=== PATIENT | female | born 1965 | race Caucasian/White ===

== ENCOUNTER 2017-12-30 14:24 | Emergency (ER) | payer OTHER ==
[2017-12-30] MEDS ORDERED: LORazepam 2 MG/ML SDV IVPUSH ONE (14:38)
[2017-12-30] MEDS ORDERED: Sodium Chloride 0.9% 10 ML Syringe FLUSH PRN (14:38)
[2017-12-30] MEDS ORDERED: LORazepam 2 MG/ML SDV ONE (14:41)
[2017-12-30 15:13] VITALS: BP 128/83
--- NOTE | 2017-12-30 16:18 | EDM.PDOC ---
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 Took BP 190 got scared. rapid HR couldn't breathe. SSCP described as pressure and burning. No hx HD or panic attacks. anxious. Chest Pain Score (Numeric/FACES): 5 - Related Data Allergies Allergy/AdvReac Type Severity Reaction Status Date / Time levofloxacin [From Levaquin] Allergy Severe Respiratory Verified 12/04/15 07:04 Distress phenobarbital Allergy Severe Cannot Verified 12/04/15 07:04 Remember sulfamethoxazole Allergy Severe Anaphylactic Verified 12/04/15 07:04 [From Bactrim] Shock trimethoprim [From Bactrim] Allergy Severe Anaphylactic Verified 12/04/15 07:04 Shock morphine Allergy Itching Verified 12/04/15 07:04 Home Meds: Home Meds Sertraline HCl [Zoloft] 100 mg PO DAILY PRN 11/30/15 [History] Cyclobenzaprine [Flexeril] 10 mg PO Q6H PRN #30 tablet 12/06/15 [Rx] Hydroxychloroquine Sulfate [Plaquenil] 200 mg PO BID 12/30/17 [History] Loteprednol [Lotemax 0.5% Ophth Soln] 1 drop EYEBOTH BID 12/30/17 [History] Omeprazole Magnesium [Prilosec Otc] 20 mg PO DAILY 12/30/17 [History] Potassium Citrate 20 meq PO BID 12/30/17 [History] amLODIPine Besylate [Norvasc] 5 mg PO DAILY 12/30/17 [History] azaTHIOprine [Imuran] 50 mg PO DAILY 12/30/17 [History] cycloSPORINE [Restasis] 1 drop EYEBOTH BID 12/30/17 [History] predniSONE [Prednisone] 10 mg PO ASDIRECTED 12/30/17 [History] traZODone HCl [Trazodone HCl] 50 - 150 mg PO BEDTIME 12/30/17 [History] Past Medical History HEENT History: Reports: Sinusitis Gastrointestinal History: Reports: Chronic Constipation, Chronic Diarrhea, GERD Genitourinary History: Reports: Renal Disease, Urinary Incontinence Other Genitourinary History: stage 3 kidney disease 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 Uterine Bleeding, Musculoskeletal History: Reports: Back Pain, Chronic, Other (See Below) Other Musculoskeletal History: hip pain Psychiatric History: Reports: Anxiety, Depression Hematologic History: Reports: Blood Transfusion(s) - Infectious Disease History Infectious Disease History: Reports: Chicken Pox, Measles, Mumps - Past Surgical History HEENT Surgical History: Reports: Adenoidectomy, Oral Surgery, Tonsillectomy, Other (See Below) Female Surgical History: Reports: Hysterectomy, Other (See Below) Social & Family History - Tobacco Use Smoking Status *Q: Never Smoker - Caffeine Use Caffeine Use: Reports: Coffee - Recreational Drug Use Recreational Drug Use: No ED ROS GENERAL - Review of Systems Review Of Systems: ROS reveals no pertinent complaints other than HPI. ED EXAM, GENERAL - Physical Exam Exam: See Below Exam Limited By: No Limitations General Appearance: Alert, WD/WN, Anxious, Moderate Distress Respiratory/Chest: Lungs Clear, Other (tachypnea) Cardiovascular: Regular Rate, Rhythm, No Edema, Tachycardia Peripheral Pulses: 1+: Radial (L), Radial (R) GI/Abdominal: Non-Tender Extremities: Normal Inspection Neurological: Alert, Oriented Psychiatric: Anxious Skin Exam: Warm, Dry Course - Vital Signs Last Recorded V/S: Last Vital Signs Temp 37.3 C 12/30/17 14:46 Pulse 114 H 12/30/17 15:13 Resp 16 12/30/17 15:13 BP 128/83 12/30/17 15:13 Pulse Ox 92 L 12/30/17 15:13 - Orders/Labs/Meds Orders: Active Orders 24 hr Category Date Time Status EKG Documentation Completion [RC] ASDIRECTED Care 12/30/17 14:38 Active EKG Documentation Completion [RC] ASDIRECTED Care 12/30/17 16:07 Active Chest 1V Frontal [CR] Urgent Exams 12/30/17 14:37 Taken Sodium Chloride 0.9% [Saline Flush] Med 12/30/17 14:38 Active 10 ml FLUSH ASDIRECTED PRN Saline Lock Insert [OM.PC] Urgent Oth 12/30/17 14:37 Ordered EKG 12 Lead [EK] Urgent Ther 12/30/17 14:37 Ordered EKG 12 Lead [EK] Urgent Ther 12/30/17 16:07 Ordered Medication Orders Sodium Chloride (Saline Flush) 10 ml FLUSH ASDIRECTED PRN PRN Reason: Keep Vein Open Last Admin: 12/30/17 14:42 Dose: 10 ml Labs: Laboratory Tests 12/30/17 12/30/17 12/30/17 Range/Units 14:30 14:30 14:30 WBC 6.6 (4.5-11.0) K/uL RBC 4.50 (3.30-5.50) M/uL Hgb 12.7 (12.0-15.0) g/dL Hct 39.4 (36.0-48.0) % MCV 88 (80-98) fL MCH 28 (27-31) pg MCHC 32 (32-36) % Plt Count 161 (150-400) K/uL Neut % (Auto) 79 H (36-66) % Lymph % (Auto) 12 L (24-44) % Peach % (Auto) 9 H (2-6) % Eos % (Auto) 0 L (2-4) % Baso % (Auto) 0 (0-1) % D-Dimer, Quantitative < 100 (0.0-400.0) ng/mL Sodium (140-148) mmol/L Potassium (3.6-5.2) mmol/L Chloride (100-108) mmol/L Carbon Dioxide (21-32) mmol/L Anion Gap (5.0-14.0) mmol/L BUN (7-18) mg/dL Creatinine (0.6-1.0) mg/dL Est Cr Clr Drug Dosing mL/min Estimated GFR (MDRD) (>60) Glucose (74-106) mg/dL Calcium (8.5-10.1) mg/dL Total Bilirubin (0.2-1.0) mg/dL AST (15-37) U/L ALT (12-78) U/L Alkaline Phosphatase (46-116) U/L Troponin I < 0.017 (0.000-0.056) ng/mL Total Protein (6.4-8.2) g/dL Albumin (3.4-5.0) g/dL Globulin (2.3-3.5) g/dL Albumin/Globulin Ratio (1.2-2.2) 12/30/17 Range/Units 14:30 WBC (4.5-11.0) K/uL RBC (3.30-5.50) M/uL Hgb (12.0-15.0) g/dL Hct (36.0-48.0) % MCV (80-98) fL MCH (27-31) pg MCHC (32-36) % Plt Count (150-400) K/uL Neut % (Auto) (36-66) % Lymph % (Auto) (24-44) % Peach % (Auto) (2-6) % Eos % (Auto) (2-4) % Baso % (Auto) (0-1) % D-Dimer, Quantitative (0.0-400.0) ng/mL Sodium 138 L (140-148) mmol/L Potassium 4.8 (3.6-5.2) mmol/L Chloride 102 (100-108) mmol/L Carbon Dioxide 25 (21-32) mmol/L Anion Gap 15.8 H (5.0-14.0) mmol/L BUN 27 H D (7-18) mg/dL Creatinine 1.4 H (0.6-1.0) mg/dL Est Cr Clr Drug Dosing 45.00 mL/min Estimated GFR (MDRD) 40 L (>60) Glucose 123 H (74-106) mg/dL Calcium 9.2 (8.5-10.1) mg/dL Total Bilirubin 0.4 D (0.2-1.0) mg/dL AST 13 L (15-37) U/L ALT 29 (12-78) U/L Alkaline Phosphatase 54 (46-116) U/L Troponin I (0.000-0.056) ng/mL Total Protein 6.6 (6.4-8.2) g/dL Albumin 3.3 L (3.4-5.0) g/dL Globulin 3.3 (2.3-3.5) g/dL Albumin/Globulin Ratio 1.0 L (1.2-2.2) Meds: Medications Generic Name Dose Route Start Last Admin Trade Name Freq PRN Reason Stop Dose Admin Sodium Chloride 10 ml 12/30/17 14:38 12/30/17 14:42 Saline Flush FLUSH 10 ml ASDIRECTED PRN Administration Keep Vein Open Discontinued Medications Generic Name Dose Route Start Last Admin Trade Name Kaya PRN Reason Stop Dose Admin Lorazepam 2 mg 12/30/17 14:38 12/30/17 14:42 Ativan IVPUSH 12/30/17 14:39 2 mg ONETIME ONE Administration Lorazepam Confirm 12/30/17 14:41 12/30/17 14:45 Ativan Administered 12/30/17 14:42 Not Given Dose 2 mg .ROUTE .STK-MED ONE - Re-Assessments/Exams Free Text/Narrative Re-Assessment/Exam: 12/30/17 16:15 2 ekg's show sinus tacky. # at 109 bpm after 2 mg ativan iv. No ischemic changes All cp fone now. Departure - Departure Time of Disposition: 16:16 Disposition: Home, Self-Care 01 Condition: Fair Clinical Impression: Chest pain, Panic attack Referrals: PCP,None [Primary Care Provider] - Additional Instructions: The medication you received, Lorazepam or Ativan , will continue to cause sedation for the rest of the day so you should avoid driving or operating machinery I you continue to have these episodes then see your doctor about treatment to prevent these episodes. - My Orders Last 24 Hours: My Active Orders 12/30/17 14:37 Chest 1V Frontal [CR] Urgent Saline Lock Insert [OM.PC] Urgent EKG 12 Lead [EK] Urgent 12/30/17 14:38 EKG Documentation Completion [RC] ASDIRECTED Sodium Chloride 0.9% [Saline Flush] 10 ml FLUSH ASDIRECTED PRN 12/30/17 16:07 EKG Documentation Completion [RC] ASDIRECTED EKG 12 Lead [EK] Urgent - Assessment/Plan Last 24 Hours: My Active Orders 12/30/17 14:37 Chest 1V Frontal [CR] Urgent Saline Lock Insert [OM.PC] Urgent EKG 12 Lead [EK] Urgent 12/30/17 14:38 EKG Documentation Completion [RC] ASDIRECTED Sodium Chloride 0.9% [Saline Flush] 10 ml FLUSH ASDIRECTED PRN 12/30/17 16:07 EKG Documentation Completion [RC] ASDIRECTED EKG 12 Lead [EK] Urgent
--- NOTE | 2017-12-31 10:55 | CR ---
Chest 1V Frontal INDICATION: pain COMPARISON: 12/30/2017 FINDINGS: AP portable chest. Heart size normal. Lungs are clear. No pleural effusion.
== END 2017-12-30 16:37 | disposition home or self-care (01) ==
LOC: JP.ED 14:24
DX: F41.0 Panic disorder [episodic paroxysmal anxiety] (principal); R07.9 Chest pain, unspecified; K21.9 Gastro-esophageal reflux disease without esophagitis; Z88.1 Allergy status to other antibiotic agents; Z88.2 Allergy status to sulfonamides; Z88.5 Allergy status to narcotic agent; Z79.899 Other long term (current) drug therapy
CPT/HCPCS: 36415; 71045; 80053; 84484; 85025; 85379; 93005; 96374; 99285; J2060; J7050

== ENCOUNTER 2018-09-24 06:53 | Day surgery (SDC) | payer OTHER ==
[2018-09-24] MEDS ORDERED: Dextrose 5%-Lactated Ringers 1,000 ML IV SCH (07:15)
[2018-09-24] MEDS ORDERED: fentaNYL 100 MCG/2 ML SDV ONE (07:32)
[2018-09-24] MEDS ORDERED: Midazolam 1 MG/ML 2 ML SDV ONE (07:32)
[2018-09-24] MEDS ORDERED: Propofol 200 MG/20 ML SDV ONE ×2 (07:32→09:26)
[2018-09-24 11:00] VITALS: BP 123/88
--- NOTE | 2018-09-30 13:29 | OR ---
DATE OF PROCEDURE: 09/24/2018 PREOPERATIVE DIAGNOSIS: Indications for screening colonoscopy. POSTOPERATIVE DIAGNOSIS: Normal screening colonoscopy. OPERATIVE PROCEDURE: Flexible colonoscopy. ANESTHESIA: IV sedation. INDICATIONS FOR PROCEDURE: This is a 53-year-old female presenting for screening colonoscopy. Potential risks including bleeding and infection were reviewed, and the patient wishes to proceed. DETAILS OF PROCEDURE: The patient was taken to the operating room and placed in a left lateral decubitus position. IV sedation was administered, after which the initial digital rectal exam was performed and it was unremarkable. Colonoscope was then passed into the rectum with retroflexion revealing uncomplicated hemorrhoidal columns. The scope was eventually passed to the level of the cecum. The prep was quite good with only small amount of liquid stool being present. To that level, no abnormalities were noted. Specifically, there was no diverticula, no areas of colitis, and no polyps or other signs of neoplasia. The above findings were then reconfirmed upon removal of the scope and the procedure concluded. The patient was taken to the recovery room in satisfactory condition. With the absence of any personal and family history of colonic neoplasia, the patient should have a repeat colonoscopy in 10 years. Charles Garcia MD /[id number]
== END 2018-09-24 11:00 | disposition home or self-care (01) ==
LOC: JP.SDS 06:53
PROVIDERS: ATTEND Surgery
DX: Z12.11 Encounter for screening for malignant neoplasm of colon (principal); K64.9 Unspecified hemorrhoids; I12.9 Hypertensive chronic kidney disease with stage 1 through stage 4 chronic kidney disease, or unspecified chronic kidney disease; N18.3 Chronic kidney disease, stage 3 (moderate)
CPT/HCPCS: 45378; J2250; J2704; J3010; J7042

== ENCOUNTER 2019-07-28 16:38 | Emergency (ER) | payer OTHER ==
[2019-07-28 16:52] VITALS: BP 165/106; PULSE 116
== END 2019-07-28 17:49 | disposition home or self-care (01) ==
LOC: JP.ED 16:38
DX: Z53.21 Procedure and treatment not carried out due to patient leaving prior to being seen by health care provider (principal)

== ENCOUNTER 2019-09-15 10:33 | Emergency (ER) | payer OTHER ==
[2019-09-15 10:53] VITALS: BP 141/94; PULSE 117
[2019-09-15] MEDS ORDERED: Ketorolac 30 MG/ML SDV IM ONE (11:11)
[2019-09-15] MEDS ORDERED: Metoclopramide 10 MG Tab PO ONE (11:12)
--- NOTE | 2019-09-15 11:17 | EDM.PDOC ---
ED HPI GENERAL MEDICAL PROBLEM - General Chief Complaint: Flank Pain Stated Complaint: LOWER BACK PAIN Time Seen by Provider: 09/15/19 11:04 Source of Information: Reports: Patient, Old Records, RN Notes Reviewed History Limitations: Reports: No Limitations - History of Present Illness INITIAL COMMENTS - FREE TEXT/NARRATIVE: 54-year-old female presents emergency department a complaint of flank pain she states it really started early this morning initially wax and wane but now it is constant sharp and stabbing temperature was 100.8 at home she is afebrile here recently had a urinary tract infection treated with Invanz for 7 days. She does feel nauseated remote history of nephrolithiasis several years ago. No urinary symptoms follow-up UA per her report was negative Left Lower Back Pain Score (Numeric/FACES): 10 - Related Data Allergies Allergy/AdvReac Type Severity Reaction Status Date / Time levofloxacin [From Levaquin] Allergy Severe Respiratory Verified 09/15/19 10:58 Distress phenobarbital Allergy Severe Cannot Verified 09/15/19 10:58 Remember sulfamethoxazole Allergy Severe Anaphylactic Verified 09/15/19 10:58 [From Bactrim] Shock trimethoprim [From Bactrim] Allergy Severe Anaphylactic Verified 09/15/19 10:58 Shock azathioprine [From Imuran] Allergy Rash Verified 09/15/19 10:58 morphine Allergy Itching Verified 09/15/19 10:58 Home Meds: Home Meds Cyclobenzaprine [Flexeril] 10 mg PO Q6H PRN #30 tablet 12/06/15 [Rx] Hydroxychloroquine Sulfate [Plaquenil] 200 mg PO BID 12/30/17 [History] amLODIPine Besylate [Norvasc] 10 mg PO DAILY 12/30/17 [History] Acetaminophen with Codeine [Tylenol with Codeine #3 Tablet] 1 tab PO Q8H PRN [History] Fluticasone Propionate [Flonase Allergy Relief] 2 spray NS DAILY 09/22/18 [ History] buPROPion HCl [Wellbutrin Xl] 300 mg PO DAILY 09/22/18 [History] diphenhydrAMINE HCl [Benadryl] 25 mg PO Q6H PRN 09/22/18 [History] Acetaminophen [Pain Reliever] 1,500 mg PO ASDIRECTED PRN 12/17/19 [History] mycophenolate mofetiL [Cellcept] 1,500 mg PO BID 07/28/19 [History] Ketorolac [Toradol] 10 mg PO TID PRN #20 tab 09/15/19 [Rx] Past Medical History HEENT History: Reports: Hard of Hearing, Impaired Vision, Sinusitis, Other (See Below) Other HEENT History: wears glasses Gastrointestinal History: Reports: Chronic Constipation, Chronic Diarrhea, GERD , Hemorrhoids Genitourinary History: Reports: Renal Disease, Urinary Incontinence, UTI, Recurrent Other Genitourinary History: stage 3 kidney disease 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 Uterine Bleeding, Musculoskeletal History: Reports: Back Pain, Chronic, Other (See Below) Other Musculoskeletal History: hip pain Neurological History: Reports: Other (See Below) Other Neuro History: febrile seizure as child Psychiatric History: Reports: Anxiety, Depression Hematologic History: Reports: Anemia, Blood Transfusion(s) Immunologic History: Reports: Other (See Below) Dermatologic History: Reports: Other (See Below) Other Dermatologic History: bacterial rash to buttock - Infectious Disease History Infectious Disease History: Reports: Chicken Pox, Measles, Mumps, Shingles - Past Surgical History Head Surgeries/Procedures: Reports: None HEENT Surgical History: Reports: Adenoidectomy, Naso-Sinus Surgery, Oral Surgery , Tonsillectomy, Other (See Below) GI Surgical History: Reports: EGD, Lynn Fundoplication Female Surgical History: Reports: Hysterectomy, Other (See Below) Other Female Surgeries/Procedures: prolapse bladder Neurological Surgical History: Reports: None Musculoskeletal Surgical History: Reports: Hip Replacement Dermatological Surgical History: Reports: None Social & Family History - Tobacco Use Smoking Status *Q: Never Smoker Second Hand Smoke Exposure: No - Caffeine Use Caffeine Use: Reports: Coffee, Tea - Recreational Drug Use Recreational Drug Use: No ED ROS GENERAL - Review of Systems Review Of Systems: See Below Constitutional: Reports: Fever HEENT: Reports: No Symptoms Respiratory: Reports: No Symptoms Cardiovascular: Reports: No Symptoms GI/Abdominal: Reports: Nausea. Denies: Abdominal Pain : Reports: Flank Pain Musculoskeletal: Reports: No Symptoms Skin: Reports: No Symptoms ED EXAM, RENAL/ - Physical Exam Exam: See Below Exam Limited By: No Limitations General Appearance: Alert, Mild Distress Respiratory/Chest: No Respiratory Distress, Lungs Clear, Normal Breath Sounds, No Accessory Muscle Use, Chest Non-Tender Cardiovascular: Regular Rate, Rhythm, No Murmur GI/Abdominal: Soft, Tender Back Exam: Normal Inspection, Full Range of Motion, CVA Tenderness (R). No: CVA Tenderness (L) Course - Vital Signs Last Recorded V/S: Last Vital Signs Temp 98.1 F 09/15/19 10:54 Pulse 117 H 09/15/19 10:54 Resp 18 09/15/19 10:54 BP 141/94 H 09/15/19 10:54 Pulse Ox 100 09/15/19 10:54 - Orders/Labs/Meds Orders: Active Orders 24 hr Category Date Time Status CULTURE URINE [RM] Urgent Lab 09/15/19 12:10 Received Labs: Laboratory Tests 09/15/19 09/15/19 09/15/19 Range/Units 11:05 11:22 11:22 WBC 5.4 (4.5-11.0) K/uL RBC 4.54 (3.30-5.50) M/uL Hgb 12.3 (12.0-15.0) g/dL Hct 38.9 (36.0-48.0) % MCV 86 (80-98) fL MCH 27 (27-31) pg MCHC 32 (32-36) % Plt Count 276 (150-400) K/uL Neut % (Auto) 75 H (36-66) % Lymph % (Auto) 13 L (24-44) % Barren % (Auto) 11 H (2-6) % Eos % (Auto) 0 L (2-4) % Baso % (Auto) 1 (0-1) % Sodium 136 L (140-148) mmol/L Potassium 4.3 (3.6-5.2) mmol/L Chloride 106 (100-108) mmol/L Carbon Dioxide 19 L (21-32) mmol/L Anion Gap 15.3 H (5.0-14.0) mmol/L BUN 16 (7-18) mg/dL Creatinine 1.3 H (0.6-1.0) mg/dL Est Cr Clr Drug Dosing 47.39 mL/min Estimated GFR (MDRD) 43 L (>60) Glucose 95 (74-106) mg/dL Calcium 8.4 L (8.5-10.1) mg/dL Urine Color Yellow (YELLOW) Urine Appearance Slightly cloudy A (CLEAR) Urine pH 6.5 (5.0-8.0) Ur Specific Carter 1.015 (1.008-1.030) Urine Protein Negative (NEGATIVE) mg/dL Urine Glucose (UA) Negative (NEGATIVE) mg/dL Urine Ketones Negative (NEGATIVE) mg/dL Urine Occult Blood Negative (NEGATIVE) Urine Nitrite Positive H (NEGATIVE) Urine Bilirubin Negative (NEGATIVE) Urine Urobilinogen 0.2 (0.2-1.0) EU/dL Ur Leukocyte Esterase Small H (NEGATIVE) Urine RBC 0-5 (0-5) Urine WBC 20-30 H (0-5) Ur Epithelial Cells Few Amorphous Sediment Not seen Urine Bacteria Many Urine Mucus Not seen Meds: Medications Discontinued Medications Generic Name Dose Route Start Last Admin Trade Name Freq PRN Reason Stop Dose Admin Ketorolac Tromethamine 30 mg 09/15/19 11:11 09/15/19 11:31 Toradol IM 09/15/19 11:12 30 mg ONETIME ONE Administration Metoclopramide HCl 10 mg 09/15/19 11:12 09/15/19 11:31 Reglan PO 09/15/19 11:13 10 mg ONETIME ONE Administration Departure - Departure Time of Disposition: 12:27 Disposition: Home, Self-Care 01 Condition: Fair Clinical Impression: Functional constipation - Discharge Information Instructions: Constipation, Adult Referrals: Magdalena Singer CNM [Primary Care Provider] - Forms: ED Department Discharge Additional Instructions: Try the MiraLAX follow the colonoscopy prep. Your urine culture will take 3 to 4 days to complete if it does grow a bacteria consistent with a urinary tract infection we will prescribe the appropriate antibiotic based upon your allergies and sensitivities of the culture. Medications have been faxed to [facility], please followup with your primary care provider in 3-5 days if not better, please call return to the emergency department with worsening of symptoms. Sepsis Event Note - Evaluation Sepsis Screening Result: No Definite Risk - Focused Exam Vital Signs: Vital Signs Temp Pulse Resp BP Pulse Ox 09/15/19 10:54 98.1 F 117 H 18 141/94 H 100 09/15/19 10:52 98.1 F 117 H 18 141/94 H 100 Date Exam was Performed: 09/15/19 Time Exam was Performed: 12:23 - My Orders Last 24 Hours: My Active Orders 09/15/19 12:10 CULTURE URINE [RM] Urgent - Assessment/Plan Last 24 Hours: My Active Orders 09/15/19 12:10 CULTURE URINE [RM] Urgent Plan: Assessment Acuity = acute Site and laterality = functional constipation Etiology = slow transit time Manifestations = none Location of injury = Home Lab values = CBC unremarkable BMP reveals a creatinine 1.3 consistent with chronic renal failure stage G3a urinalysis positive for nitrates and 20-30 WBCs consistent with pyuria cultures pending Plan After reviewing her record urinalysis on 29 August also positive for nitrates and WBCs urine culture revealed mixed alysia and she was treated with 1 week of Invanz. She did report a fever at home however no fever was reported in the emergency department elected to hold off on treatment until urine culture was available. The functional constipation is probably contributing to the abdominal pain she did get significant relief with the Toradol injection. Agreed to write a prescription for Toradol 10 mg p.o. 3 times daily as needed total #20 and counseled her on the use of that medication with her stage III kidney disease. [place] this was a better choice than a narcotic at this point time follow-up primary care 3 to 5 days if not better This note was dictated using [employer] voice recognition software please call with any questions on syntax or grammar.
--- NOTE | 2019-09-15 11:54 | CT ---
Abdomen Pelvis wo Cont CLINICAL HISTORY: Flank pain COMPARISON: 2012. TECHNIQUE: Axial tomographic images are obtained from the dome of the diaphragm to the pubic symphysis without IV contrast enhancement. No oral contrast was used. A scribe dose FINDINGS: The lung bases are clear. The liver shows no mass or biliary dilatation. The gallbladder has a normal appearance. Patient has had previous gastric surgery. This may have been a Lynn procedure. The spleen has a normal configuration. There is dilatation of the duodenum and jejunal bowel loops. Ileal contour and caliber is normal throughout. The definite transition point is not identified. The appendix has a normal contour. There is moderate to the fecal retention in the right and transverse colon The pancreas shows no mass or inflammatory change. The adrenal glands appear normal bilaterally. The kidneys show innumerable medullary type calcifications diffusely and bilaterally. There is no hydronephrosis. A 1.8 cm low-attenuation focus in the midpole of the right kidney and is similar to 0.1 cm low-attenuation focus in the upper pole of the left kidney. These likely represent hepatic cysts but should be correlated with ultrasound. The ureters have a normal course and contour. The no definite ureteral calcification is seen but the distal ureters are of scattered by streak artifact from bilateral hip prostheses. The aorta has a normal caliber. There is no suspicious retroperitoneal adenopathy. There is anatomic variation of the IVC with the persistent left-sided IVC below the renal vessels. IMPRESSION: Innumerable medullary type calcifications in both kidneys without evidence of urinary obstruction. 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 This is nonspecific Moderate right colon fecal retention Persistent left-sided IVC
== END 2019-09-15 12:37 | disposition home or self-care (01) ==
LOC: JP.ED 10:33
DX: K59.04 Chronic idiopathic constipation (principal); Z88.8 Allergy status to other drugs, medicaments and biological substances; Z88.5 Allergy status to narcotic agent; Z88.1 Allergy status to other antibiotic agents
CPT/HCPCS: 36415; 74176; 74176-26; 80048; 81001; 85025; 87086; 87088; 87186; 96372; 99284-25; A9270-GY; J1885

== ENCOUNTER 2020-01-25 11:27 | Emergency (ER) | payer OTHER ==
[2020-01-25 11:41] VITALS: BP 139/87; PULSE 104
--- NOTE | 2020-01-25 12:32 | EDM.PDOC ---
ED HPI GENERAL MEDICAL PROBLEM - General Chief Complaint: Genitourinary Problem Stated Complaint: UTI, WANTS IV INFUSION Time Seen by Provider: 01/25/20 11:50 Source of Information: Reports: Patient History Limitations: Reports: No Limitations - History of Present Illness INITIAL COMMENTS - FREE TEXT/NARRATIVE: 54-year-old female with Sjogren's syndrome and chronic inflammatory issues who presents with frequent urination, urgency, and malodorous urine which is been ongoing for several months. Testing has been done at the clinic, and some results returned today and she was called to go to the emergency room to get "IV medication". She feels occasional chills but no fevers, she has chronic pain issues, nothing new. She did show me her lab on her phone, she had a few ba cteria and WBCs on her urine the last 2 checks over the past week. No culture was done. Onset: Unknown/Unsure Duration: Chronic Associated Symptoms: Reports: Other (Occasional chills, no fever, significant polyarthritis changes). Denies: Cough, Loss of Appetite, Nausea/Vomiting, Shortness of Breath - Related Data Allergies Allergy/AdvReac Type Severity Reaction Status Date / Time levofloxacin [From Levaquin] Allergy Severe Respiratory Verified 01/25/20 11:49 Distress phenobarbital Allergy Severe Cannot Verified 01/25/20 11:49 Remember sulfamethoxazole Allergy Severe Anaphylactic Verified 01/25/20 11:49 [From Bactrim] Shock trimethoprim [From Bactrim] Allergy Severe Anaphylactic Verified 01/25/20 11:49 Shock azathioprine [From Imuran] Allergy Rash Verified 01/25/20 11:49 morphine Allergy Itching Verified 01/25/20 11:49 Home Meds: Home Meds Cyclobenzaprine [Flexeril] 10 mg PO Q6H PRN #30 tablet 12/06/15 [Rx] Hydroxychloroquine Sulfate [Plaquenil] 200 mg PO BID 12/30/17 [History] amLODIPine Besylate [Norvasc] 10 mg PO DAILY 12/30/17 [History] Acetaminophen with Codeine [Tylenol with Codeine #3 Tablet] 1 tab PO Q8H PRN 09/22/18 [History] Fluticasone Propionate [Flonase Allergy Relief] 2 spray NS DAILY 09/22/18 [History] buPROPion HCL [Wellbutrin Xl] 300 mg PO DAILY 09/22/18 [History] diphenhydrAMINE HCL [Benadryl] 25 mg PO Q6H PRN 09/22/18 [History] Acetaminophen [Pain Reliever] 1,500 mg PO ASDIRECTED PRN 06/14/19 [History] mycophenolate mofetiL [Cellcept] 1,500 mg PO BID 07/28/19 [History] Ketorolac [Toradol] 10 mg PO TID PRN #20 tab 09/15/19 [Rx] Past Medical History HEENT History: Reports: Hard of Hearing, Impaired Vision, Sinusitis, Other (See Below) Other HEENT History: wears glasses Gastrointestinal History: Reports: Chronic Constipation, Chronic Diarrhea, GERD, Hemorrhoids Genitourinary History: Reports: Renal Disease, Urinary Incontinence, UTI, Recurrent Other Genitourinary History: stage 3 kidney disease 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: Dysfunctional Uterine Bleeding, Musculoskeletal History: Reports: Back Pain, Chronic, Other (See Below) Other Musculoskeletal History: hip pain Neurological History: Reports: Other (See Below) Other Neuro History: febrile seizure as child Psychiatric History: Reports: Anxiety, Depression Hematologic History: Reports: Anemia, Blood Transfusion(s) Immunologic History: Reports: Other (See Below) Other Immunologic History: lupus Dermatologic History: Reports: Other (See Below) Other Dermatologic History: bacterial rash to buttock - Infectious Disease History Infectious Disease History: Reports: Chicken Pox, Measles, Mumps, Shingles - Past Surgical History Head Surgeries/Procedures: Reports: None HEENT Surgical History: Reports: Adenoidectomy, Naso-Sinus Surgery, Oral Surgery, Tonsillectomy, Other (See Below) GI Surgical History: Reports: EGD, Lynn Fundoplication Female Surgical History: Reports: Hysterectomy, Other (See Below) Other Female Surgeries/Procedures: prolapse bladder Neurological Surgical History: Reports: None Musculoskeletal Surgical History: Reports: Hip Replacement Dermatological Surgical History: Reports: None Social & Family History - Tobacco Use Smoking Status *Q: Never Smoker Second Hand Smoke Exposure: No - Caffeine Use Caffeine Use: Reports: Coffee - Recreational Drug Use Recreational Drug Use: No ED ROS GENERAL - Review of Systems Review Of Systems: See Below Constitutional: Reports: Chills, Malaise. Denies: Fever HEENT: Reports: No Symptoms Respiratory: Denies: Shortness of Breath Cardiovascular: Denies: Chest Pain GI/Abdominal: Denies: Nausea, Vomiting : Reports: Frequency, Urgency. Denies: Dysuria Musculoskeletal: Reports: Other (Generalized joint pains, especially shoulders and hips) Skin: Reports: No Symptoms Neurological: Reports: No Symptoms ED EXAM, RENAL/ - Physical Exam Exam: See Below Exam Limited By: No Limitations General Appearance: Alert, No Apparent Distress Head: Atraumatic Respiratory/Chest: No Respiratory Distress GI/Abdominal: Non-Tender Extremities: No: Pedal Edema Neurological: Alert, Oriented Psychiatric: Normal Affect, Normal Mood Course - Vital Signs Last Recorded V/S: Last Vital Signs Temp 98.9 F 01/25/20 11:55 Pulse 104 H 01/25/20 11:55 Resp 20 01/25/20 11:55 BP 139/87 01/25/20 11:55 Pulse Ox 100 01/25/20 11:55 - Orders/Labs/Meds Orders: Active Orders 24 hr Category Date Time Status CULTURE URINE [RM] Stat Lab 01/25/20 12:25 Received Labs: Laboratory Tests 01/25/20 Range/Units 12:07 Urine Color Yellow (YELLOW) Urine Appearance Clear (CLEAR) Urine pH 7.0 (5.0-8.0) Ur Specific [place] 1.010 (1.008-1.030) Urine Protein Negative (NEGATIVE) mg/dL Urine Glucose (UA) Negative (NEGATIVE) mg/dL Urine Ketones Negative (NEGATIVE) mg/dL Urine Occult Blood Trace-lysed H (NEGATIVE) Urine Nitrite Negative (NEGATIVE) Urine Bilirubin Negative (NEGATIVE) Urine Urobilinogen 0.2 (0.2-1.0) EU/dL Ur Leukocyte Esterase Large H (NEGATIVE) Urine RBC 0-5 (0-5) Urine WBC 30-40 H (0-5) Ur Epithelial Cells Moderate Amorphous Sediment Not seen Urine Bacteria Few Urine Mucus Not seen Meds: Medications Discontinued Medications Generic Name Dose Route Start Last Admin Trade Name Freq PRN Reason Stop Dose Admin Ceftriaxone Sodium 1 gm/ 50 mls @ 100 mls/hr 01/25/20 13:00 01/25/20 13:08 Sodium Chloride IV 01/25/20 13:29 100 mls/hr ONETIME ONE Administration - Re-Assessments/Exams Free Text/Narrative Re-Assessment/Exam: 01/25/20 12:37 A mini cath UA was obtained which showed just a few bacteria and 30-40 WBCs. 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 She will return as an outpatient to the emergency room for the next 4 mornings for 1 more gram of IV Rocephin, culture results will be available in 48 hours. Departure - Departure Time of Disposition: 13:14 Disposition: Home, Self-Care 01 Clinical Impression: UTI, Urinary tract infectious disease - Discharge Information Instructions: Urinary Tract Infection, Adult Referrals: Magdalena Singer CNM [Primary Care Provider] - Forms: ED Department Discharge Care Plan Goals: Return tomorrow and the following 3 mornings for IV antibiotic to treat your bacteriuria. Return anytime if worsening such as fevers, vomiting or increased pain. Sepsis Event Note (ED) - Evaluation Sepsis Screening Result: No Definite Risk - Focused Exam Vital Signs: Vital Signs Temp Pulse Resp BP Pulse Ox 01/25/20 11:55 98.9 F 104 H 20 139/87 100 01/25/20 11:39 98.9 F 104 H 20 139/87 100 - My Orders Last 24 Hours: My Active Orders 01/25/20 12:25 CULTURE URINE [RM] Stat - Assessment/Plan Last 24 Hours: My Active Orders 01/25/20 12:25 CULTURE URINE [RM] Stat
[2020-01-25] MEDS ORDERED: cefTRIAXone 1 GM in Sodium Chloride 0.9% 50 ML IV ONE ×2 (12:42→13:00)
== END 2020-01-25 13:35 | disposition home or self-care (01) ==
LOC: JP.ED 11:27
DX: N39.0 Urinary tract infection, site not specified (principal); N18.3 Chronic kidney disease, stage 3 (moderate); F41.9 Anxiety disorder, unspecified; F32.9 Major depressive disorder, single episode, unspecified; Z90.710 Acquired absence of both cervix and uterus; Z88.8 Allergy status to other drugs, medicaments and biological substances; Z88.2 Allergy status to sulfonamides; Z88.5 Allergy status to narcotic agent; Z79.899 Other long term (current) drug therapy
CPT/HCPCS: 81001; 87086; 87088; 87186; 96365; 99283; J0696; J7050; 99284

== ENCOUNTER 2021-03-15 15:35 | Emergency (ER) | payer OTHER ==
[2021-03-15 15:52] VITALS: BP 136/82; PULSE 118
--- NOTE | 2021-03-15 16:36 | EDM.PDOC ---
ED HPI GENERAL MEDICAL PROBLEM - General Chief Complaint: Fever Stated Complaint: COVID SYMPTOMS Time Seen by Provider: 03/15/21 16:00 Source of Information: Reports: Patient, Family History Limitations: Reports: No Limitations - History of Present Illness INITIAL COMMENTS - FREE TEXT/NARRATIVE: 55-year-old female with chronic renal insufficiency, Sjogren's syndrome, and chronic immunocompromised status arrives with a temperature that earlier today was "105". She received a dose of fosfomycin yesterday for a recurring UTI. She was also checked for Covid today but results are not back. When her temperature reached that high, she called the helpline and they sent her to the emergency room. She arrived afebrile. They now think that her thermometer was probably malfunctioning. She does have a persistent dry cough, no abdominal pain, nausea or vomiting or other complaint. She does feel tired and aches all over. Onset: Gradual (Symptoms have worsened over the last couple of days) Location: Reports: Generalized Quality: Reports: Ache (Generalized ache) Worsens with: Reports: Movement Associated Symptoms: Reports: Cough, Fever/Chills, Malaise, Shortness of Breath, Weakness. Denies: Chest Pain, Headaches, Nausea/Vomiting - Related Data Allergies Allergy/AdvReac Type Severity Reaction Status Date / Time levofloxacin [From Levaquin] Allergy Severe Respiratory Verified 03/15/21 15:48 Distress phenobarbital Allergy Severe Cannot Verified 03/15/21 15:48 Remember sulfamethoxazole Allergy Severe Anaphylactic Verified 03/15/21 15:48 [From Bactrim] Shock trimethoprim [From Bactrim] Allergy Severe Anaphylactic Verified 03/15/21 15:48 Shock azathioprine [From Imuran] Allergy Rash Verified 03/15/21 15:48 morphine Allergy Itching Verified 03/15/21 15:48 Home Meds: Home Meds Cyclobenzaprine [Flexeril] 10 mg PO Q6H PRN #30 tablet 12/06/15 [Rx] Hydroxychloroquine Sulfate [Plaquenil] 200 mg PO BID 12/30/17 [History] amLODIPine Besylate [Norvasc] 10 mg PO DAILY 12/30/17 [History] Fluticasone Propionate [Flonase Allergy Relief] 2 spray NS DAILY 09/22/18 [History] buPROPion HCL [Wellbutrin Xl] 300 mg PO DAILY 09/22/18 [History] diphenhydrAMINE HCL [Benadryl] 25 mg PO Q6H PRN 09/22/18 [History] mycophenolate mofetiL [Cellcept] 1,500 mg PO BID 07/28/19 [History] Acetaminophen with Codeine [Acetaminophen-Cod #3] 1 tab PO ASDIRECTED 03/15/21 [History] Past Medical History HEENT History: Reports: Hard of Hearing, Impaired Vision, Sinusitis, Other (See Below) Other HEENT History: wears glasses Gastrointestinal History: Reports: Chronic Constipation, Chronic Diarrhea, GERD, Hemorrhoids Genitourinary History: Reports: Renal Disease, Urinary Incontinence, UTI, Recurrent Other Genitourinary History: stage 3 kidney disease 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: Dysfunctional Uterine Bleeding, Musculoskeletal History: Reports: Back Pain, Chronic, Other (See Below) Other Musculoskeletal History: hip pain Neurological History: Reports: Other (See Below) Other Neuro History: febrile seizure as child Psychiatric History: Reports: Anxiety, Depression Hematologic History: Reports: Anemia, Blood Transfusion(s) Immunologic History: Reports: Other (See Below) Other Immunologic History: lupus Dermatologic History: Reports: Other (See Below) Other Dermatologic History: bacterial rash to buttock - Infectious Disease History Infectious Disease History: Reports: Chicken Pox, Measles, Mumps, Shingles - Past Surgical History Head Surgeries/Procedures: Reports: None HEENT Surgical History: Reports: Adenoidectomy, Naso-Sinus Surgery, Oral Surgery, Tonsillectomy, Other (See Below) Other HEENT Surgeries/Procedures: sinus surgery, repair deviated septum and "cleaned out sinuses" GI Surgical History: Reports: EGD, Lynn Fundoplication Female Surgical History: Reports: Hysterectomy, Other (See Below) Other Female Surgeries/Procedures: prolapse bladder Neurological Surgical History: Reports: None Musculoskeletal Surgical History: Reports: Hip Replacement Dermatological Surgical History: Reports: None Social & Family History - Tobacco Use Tobacco Use Status *Q: Never Tobacco User Second Hand Smoke Exposure: No - Caffeine Use Caffeine Use: Reports: Coffee, Tea - Alcohol Use Days Per Week of Alcohol Use: 3 Number of Drinks Per Day: 1 Total Drinks Per Week: 3 - Recreational Drug Use Recreational Drug Use: No ED ROS GENERAL - Review of Systems Review Of Systems: See Below Constitutional: Reports: Fever, Chills, Malaise HEENT: Denies: Throat Pain, Vision Change Respiratory: Reports: Shortness of Breath, Cough. Denies: Sputum Cardiovascular: Denies: Chest Pain Endocrine: Reports: Fatigue GI/Abdominal: Denies: Abdominal Pain, Nausea, Vomiting : Reports: Other (No urinary tract infection symptoms but diagnosed with "50-1 00,000 E. coli" with a recent culture) Musculoskeletal: Reports: Other (Generalized muscle pain, no focal pain) Skin: Reports: No Symptoms Neurological: Reports: Weakness. Denies: Headache ED EXAM, GENERAL - Physical Exam Exam: See Below Exam Limited By: No Limitations General Appearance: Alert, No Apparent Distress, Other (Appears tired but not distressed) Eye Exam: Bilateral Eye: Normal Inspection Throat/Mouth: Normal Inspection Head: Atraumatic Neck: Supple, Non-Tender Respiratory/Chest: Lungs Clear, Other (Despite her frequent dry cough, lungs sound clear) Cardiovascular: Regular Rate, Rhythm, Tachycardia (Mild tachycardia) GI/Abdominal: Soft, Non-Tender Extremities: Normal Inspection. No: Pedal Edema Neurological: Alert, Oriented, No Motor/Sensory Deficits Psychiatric: Normal Affect, Normal Mood Skin Exam: Warm, Dry Course - Vital Signs Last Recorded V/S: Last Vital Signs Temp 98.4 F 03/15/21 15:52 Pulse 118 H 03/15/21 15:52 Resp 16 03/15/21 15:52 BP 136/82 03/15/21 15:52 Pulse Ox 95 03/15/21 15:52 - Orders/Labs/Meds Orders: Active Orders 24 hr Category Date Time Status CULTURE URINE [RM] Stat Lab 03/15/21 17:21 Received Labs: Laboratory Tests 03/15/21 03/15/21 03/15/21 Range/Units 16:15 16:30 16:30 WBC 7.3 (4.5-11.0) K/uL RBC 4.29 (3.30-5.50) M/uL Hgb 11.9 L (12.0-15.0) g/dL Hct 37.0 (36.0-48.0) % MCV 86 (80-98) fL MCH 28 (27-31) pg MCHC 32 (32-36) % Plt Count 187 (150-400) K/uL Neut % (Auto) 82.8 H (36-66) % Lymph % (Auto) 6.4 L (24-44) % Kay % (Auto) 10.1 H (2-6) % Eos % (Auto) 0.4 L (2-4) % Baso % (Auto) 0.3 (0-1) % Sodium 133 L (140-148) mmol/L Potassium 3.7 (3.6-5.2) mmol/L Chloride 99 L (100-108) mmol/L Carbon Dioxide 22 (21-32) mmol/L Anion Gap 15.7 H (5.0-14.0) mmol/L BUN 14 (7-18) mg/dL Creatinine 1.5 H (0.6-1.0) mg/dL Est Cr Clr Drug Dosing 40.60 mL/min Estimated GFR (MDRD) 36 L (>60) Glucose 98 (74-106) mg/dL Calcium 8.5 (8.5-10.1) mg/dL Total Bilirubin 0.4 (0.2-1.0) mg/dL AST 14 L (15-37) U/L ALT 21 (12-78) U/L Alkaline Phosphatase 56 (46-116) U/L Total Protein 7.1 (6.4-8.2) g/dL Albumin 3.6 (3.4-5.0) g/dL Globulin 3.5 (2.3-3.5) g/dL Albumin/Globulin Ratio 1.0 L (1.2-2.2) Urine Color Yellow (YELLOW) Urine Appearance Slightly cloudy A (CLEAR) Urine pH 7.0 (5.0-8.0) Ur Specific [place] 1.015 (1.008-1.030) Urine Protein 30 H (NEGATIVE) mg/dL Urine Glucose (UA) Negative (NEGATIVE) mg/dL Urine Ketones Negative (NEGATIVE) mg/dL Urine Occult Blood Negative (NEGATIVE) Urine Nitrite Negative (NEGATIVE) Urine Bilirubin Negative (NEGATIVE) Urine Urobilinogen 0.2 (0.2-1.0) EU/dL Ur Leukocyte Esterase Small H (NEGATIVE) Urine RBC Not seen (0-5) Urine WBC 10-20 H (0-5) Ur Epithelial Cells Few Amorphous Sediment Not seen Urine Bacteria Many Urine Mucus Not seen SARS-CoV-2 RNA (MARYANNE) (NEGATIVE) 09/17/21 Range/Units 17:21 WBC (4.5-11.0) K/uL RBC (3.30-5.50) M/uL Hgb (12.0-15.0) g/dL Hct (36.0-48.0) % MCV (80-98) fL MCH (27-31) pg MCHC (32-36) % Plt Count (150-400) K/uL Neut % (Auto) (36-66) % Lymph % (Auto) (24-44) % Kay % (Auto) (2-6) % Eos % (Auto) (2-4) % Baso % (Auto) (0-1) % Sodium (140-148) mmol/L Potassium (3.6-5.2) mmol/L Chloride (100-108) mmol/L Carbon Dioxide (21-32) mmol/L Anion Gap (5.0-14.0) mmol/L BUN (7-18) mg/dL Creatinine (0.6-1.0) mg/dL Est Cr Clr Drug Dosing mL/min Estimated GFR (MDRD) (>60) Glucose (74-106) mg/dL Calcium (8.5-10.1) mg/dL Total Bilirubin (0.2-1.0) mg/dL AST (15-37) U/L ALT (12-78) U/L Alkaline Phosphatase (46-116) U/L Total Protein (6.4-8.2) g/dL Albumin (3.4-5.0) g/dL Globulin (2.3-3.5) g/dL Albumin/Globulin Ratio (1.2-2.2) Urine Color (YELLOW) Urine Appearance (CLEAR) Urine pH (5.0-8.0) Ur Specific [place] (1.008-1.030) Urine Protein (NEGATIVE) mg/dL Urine Glucose (UA) (NEGATIVE) mg/dL Urine Ketones (NEGATIVE) mg/dL Urine Occult Blood (NEGATIVE) Urine Nitrite (NEGATIVE) Urine Bilirubin (NEGATIVE) Urine Urobilinogen (0.2-1.0) EU/dL Ur Leukocyte Esterase (NEGATIVE) Urine RBC (0-5) Urine WBC (0-5) Ur Epithelial Cells Amorphous Sediment Urine Bacteria Urine Mucus SARS-CoV-2 RNA (MARYANNE) Positive H (NEGATIVE) - Re-Assessments/Exams Free Text/Narrative Re-Assessment/Exam: 03/15/21 17:46 Patient had a persistent dry cough typical of Covid, despite being afebrile. The 1 hour Covid test was obtained as well as a CBC and CMP, and a mini cath UA. The mini cath UA returned with many bacteria and some WBCs so a culture was initiated. CBC was normal, CMP was reassuring with a creatinine of 1.5 and a GFR of 36 which is the patient's typical baseline. Unfortunately the Covid returned positive, and we do not have any antibiotic therapy available at this time. She is maintaining good O2 saturations however and is not in distress, so she will be discharged home and can return if worsening. I will be in touch with her with the culture results in a couple of days. Departure - Departure Time of Disposition: 17:59 Disposition: Home, Self-Care 01 Clinical Impression: COVID-19 UTI (urinary tract infection) Qualifiers: Urinary tract infection type: acute cystitis Hematuria presence: without hematuria Qualified Code(s): N30.00 - Acute cystitis without hematuria - Discharge Information Instructions: COVID-19 Referrals: Magdalena Singer CNM [Primary Care Provider] - Forms: ED Department Discharge Care Plan Goals: Continue your regular medications, rest and stay hydrated along with advancing your diet as tolerated. Return anytime if you feel you are having difficulty getting enough oxygen or working to breathe. You will be informed of your urine culture results in the next couple of days. - My Orders Last 24 Hours: My Active Orders 03/15/21 17:21 CULTURE URINE [RM] Stat - Assessment/Plan Last 24 Hours: My Active Orders 03/15/21 17:21 CULTURE URINE [RM] Stat
== END 2021-03-15 17:59 | disposition home or self-care (01) ==
LOC: JP.ED 15:35
DX: U07.1 COVID-19 (principal); N30.00 Acute cystitis without hematuria; N18.30 Chronic kidney disease, stage 3 unspecified; Z88.1 Allergy status to other antibiotic agents; Z88.5 Allergy status to narcotic agent; Z88.2 Allergy status to sulfonamides; Z88.8 Allergy status to other drugs, medicaments and biological substances; Z20.822 Contact with and (suspected) exposure to COVID-19
CPT/HCPCS: 36415; 80053; 81001; 85025; 87086; 99283; U0002

== ENCOUNTER 2021-09-19 14:46 | Emergency (ER) | payer MEDICAID, OTHER ==
[2021-09-19] MEDS ORDERED: Ketorolac 30 MG/ML SDV IVPUSH ONE (15:39)
[2021-09-19] MEDS ORDERED: Sodium Chloride 0.9% 1,000 ML IV SCH (15:45)
[2021-09-19 16:45] VITALS: BP 124/73; PULSE 90
== END 2021-09-19 17:08 | disposition home or self-care (01) ==
LOC: JP.ED 14:46
DX: N30.00 Acute cystitis without hematuria (principal); N18.30 Chronic kidney disease, stage 3 unspecified; Z86.16 Personal history of COVID-19
CPT/HCPCS: 99282; 99283; J7030